=== PATIENT | male | born 1945 | race Caucasian/White ===

== ENCOUNTER 2022-10-13 13:19 | Emergency (ER) | payer MEDICARE, SELFPAY ==
[2022-10-13 13:34] VITALS: BP 168/64; PULSE 88; RESP 20; TEMP 36.9; O2SAT 99
--- NOTE | 2022-10-13 13:54 | ED.URI ---
HPI - URI/Sore Throat General Chief Complaint: Upper Respiratory Infection Stated Complaint: Cough Time Seen by Provider: 10/13/22 13:55 Source: patient and RN notes reviewed Mode of arrival: ambulatory Limitations: no limitations History of Present Illness HPI Narrative: 77-year-old male presented for complaint of and nasal congestion for 5 days. He endorses at the onset of symptoms he had a sore throat. Also reports a fever 3 days ago up to 99.9, and at that time he lost sense of taste. The cough is nonproductive, described as deep and worse for the last 3 days. Patient also reports fatigue and feeling weak. He denies chest pain, shortness of breath, wheezing, nausea, vomiting, diarrhea, abdominal pain or decreased appetite. Not taking anything for symptoms. Denies sick contacts. MD elicited complaint: cough Related Data Home Medications Medication Instructions Recorded Confirmed allopurinol 300 mg tablet mg 10/13/22 atorvastatin 10 mg tablet mg 10/13/22 brimonidine 0.2 % eye drops drp 10/13/22 lisinopril 5 mg tablet mg 10/13/22 pregabalin 25 mg capsule mg 10/13/22 pyridostigmine bromide 60 mg tablet mg 10/13/22 sertraline 50 mg tablet mg 10/13/22 timolol maleate 0.5 % eye drops drp 10/13/22 Allergies Allergy/AdvReac Type Severity Reaction Status Date / Time Penicillins Allergy Unknown RASH Verified 10/13/22 13:26 Review of Systems Review of Systems: per HPI Exam Narrative: GENERAL: mildly Ill-appearing, nontoxic EYES: conjunctivae clear ENT: Mucous membranes moist. TMspearly alba with dull light reflex bilaterally; no tragal tenderness. Oropharynx erythematous without lesions or exudate NECK: Supple. No lymphadenopathy CHEST: Clear to auscultation, breath sounds equal. No wheezing, rhonchi, rales, or stridor. Occasional moist [employer]ISH [employer]OL[employer] cough. No respiratory distress, speaks in full sentences. HEART: Regular rate and rhythm. No murmur heard. SKIN: Warm, dry, no rash. NEURO: Alert and oriented x3. PSYCH: Normal mood and affect Course Course Emergency Course: Patient is aware of diagnosis, understands and agrees to treatment plan. Anticipatory guidance given. Patient agrees to follow-up as directed and is aware of reasons to seek care at the emergency department. Portions of this record may have been created with voice recognition software Level of Care: Express Care Visit Vital Signs Vital signs: Vital Signs Temperature 98.5 F 10/13/22 13:34 Pulse Rate 88 10/13/22 13:34 Respiratory Rate 20 10/13/22 13:34 Blood Pressure 168/64 H 10/13/22 13:34 Pulse Oximetry 99 10/13/22 13:34 Temperature 98.5 F 10/13/22 13:34 Pulse Rate 88 10/13/22 13:34 Respiratory Rate 20 10/13/22 13:34 Blood Pressure 168/64 H 10/13/22 13:34 Pulse Oximetry 99 10/13/22 13:34 reviewed MDM - URI/Sore Throat MDM Narrative Medical decision making narrative: Patient presented for worsening cough for 3 days. Results of COVID test reviewed with patient. Aware we are unable to perform imaging at this facility. Will send Rx for abx. Patient works as CPA. Advised supportive measures and signs/symptoms to go to the ER. Pt is appropriate for outpt treatment and f/u. Differential Diagnosis Differential diagnosis: Likely upper respiratory infection, sinusitis and viral infection Discharge Plan Discharge Clinical Impression: Upper respiratory infection Patient Disposition: Home, Self-Care Condition: Stable Instructions: Antibiotic Form, Acute Cough (ED) Additional Instructions: Take medication as directed Recommend Flonase spray and Zyrtec (or Claritin/Ellie) over the counter Cough syrup may cause drowsiness; avoid driving or take it at night time. Tylenol every 8 hours as needed for pain Symptomatic treatment includes: rest, fluids, and increase humidity of the air at home. Follow up with your primary care provider in 1 week. Go to the ER for worsening symptoms or concerns.
== END 2022-10-13 14:35 | disposition home or self-care (01) ==
PROVIDERS: Emergency Provider Nurse Practitioner Family
DX: J06.9 Acute upper respiratory infection, unspecified (principal); Z20.822 Contact with and (suspected) exposure to COVID-19
CPT/HCPCS: 87426; 99213; C9803; G0463

== ENCOUNTER 2023-08-15 11:32 | Emergency (ER) | payer MEDICARE, SELFPAY ==
[2023-08-15 11:50] VITALS: BP 144/60; PULSE 67; RESP 20; TEMP 37.1; O2SAT 98
--- NOTE | 2023-08-15 12:43 | ED.URI ---
HPI - URI/Sore Throat General Chief Complaint: Upper Respiratory Infection Stated Complaint: Sinus Time Seen by Provider: 08/15/23 12:34 Source: patient, family () and RN notes reviewed Mode of arrival: ambulatory Limitations: no limitations History of Present Illness HPI Narrative: Patient presents today with a 2 day history of nasal congestion, subjective fever, rhinorrhea. Denies shortness of breath or chest pain. He has been taking Tylenol and ibuprofen with some relief. He was recently vaccinated for influenza. Related Data Home Medications Medication Instructions Recorded Confirmed allopurinol 300 mg tablet mg 10/13/22 atorvastatin 10 mg tablet mg 10/13/22 brimonidine 0.2 % eye drops drp 10/13/22 lisinopril 5 mg tablet mg 10/13/22 pregabalin 25 mg capsule mg 10/13/22 pyridostigmine bromide 60 mg tablet mg 10/13/22 sertraline 50 mg tablet mg 10/13/22 timolol maleate 0.5 % eye drops drp 10/13/22 Allergies Allergy/AdvReac Type Severity Reaction Status Date / Time Penicillins Allergy Unknown RASH Verified 08/15/23 11:40 Review of Systems Review of Systems: CONSTITUTIONAL: Denies body aches, chills, or sweats.+ subjective fever EYES: Denies visual changes, redness, or discharge. ENT: Denies sore throat, or otalgia.+ rhinorrhea, congestion CARDIOVASCULAR: Denies chest pain, palpitations, or edema. RESPIRATORY: Denies cough or dyspnea. GASTROINTESTINAL: Denies abdominal pain, nausea, vomiting, or diarrhea. GENITOURINARY: Denies dysuria or hematuria. SKIN: Denies rash, itching, or wounds. MUSCULOSKELETAL: Denies back pain, joint pain, or myalgia. NEUROLOGIC: Denies headache, numbness, tingling, or weakness. PSYCH: Denies depression or anxiety. [facility] Past Medical History Medical History (Updated 08/15/23 @ 12:46 by Oneyda Briseno, [facility], ) Gout High cholesterol Hypertension Comments At time of signature, I have reviewed and agree with nursing past medical, surgical, social and family history unless otherwise noted. Please see nursing chart for further information. There is no relevant family history pertinent to the presenting complaint Exam Narrative: GENERAL: Mildly ill-appearing, well-nourished, and in no acute distress. HEAD: Normocephalic, atraumatic. EYES: EOMI. No redness or drainage. Conjunctivae normal. ENT: Mucous membranes pink and moist. Nares clear. No rhinorrhea. TMs normal bilaterally. Throat normal. Uvula midline. NECK: Normal AROM. Supple. No lymphadenopathy. CHEST: No respiratory distress. Clear to auscultation. HEART: Regular rate and rhythm. No murmur appreciated. EXTREMITIES: Normal range of motion. No edema. SKIN: Warm, dry, no rash. Capillary refill normal. Normal skin turgor. NEURO: No focal deficits. Alert and oriented x3. Gait steady. PSYCH: Normal affect. No signs of depression or anxiety. Course Course Level of Care: Express Care Visit Vital Signs Vital signs: Vital Signs Temperature 98.8 F 08/15/23 11:50 Pulse Rate 67 08/15/23 11:50 Respiratory Rate 20 08/15/23 11:50 Blood Pressure 144/60 H 08/15/23 11:50 Pulse Oximetry 98 08/15/23 11:50 Oxygen Delivery Room Air 08/15/23 11:50 Temperature 98.8 F 08/15/23 11:50 Pulse Rate 67 08/15/23 11:50 Respiratory Rate 20 08/15/23 11:50 Blood Pressure 144/60 H 08/15/23 11:50 Pulse Oximetry 98 08/15/23 11:50 Oxygen Delivery Room Air 08/15/23 11:50 Reviewed MDM - URI/Sore Throat MDM Narrative Medical decision making narrative: COVID negative. Influenza a positive. Patient would like a prescription for Tamiflu. Discussed [id number] treatment as well. Differential Diagnosis Differential diagnosis: Likely upper respiratory infection, viral infection, influenza and other (COVID-19) Lab Data Attestation: I reviewed the patient's lab results. Lab results narrative: COVID-19 negative Labs: Influenza A Screen Positive
== END 2023-08-15 12:50 | disposition home or self-care (01) ==
PROVIDERS: Emergency Provider Nurse Practitioner
DX: J10.1 Influenza due to other identified influenza virus with other respiratory manifestations (principal); I10 Essential (primary) hypertension; Z20.822 Contact with and (suspected) exposure to COVID-19
CPT/HCPCS: 87426; 87804; 99213; C9803; G0463

== ENCOUNTER 2023-09-10 11:12 | Emergency (ER) | payer MEDICARE, SELFPAY ==
[2023-09-10 11:30] VITALS: BP 145/46; PULSE 66; RESP 16; TEMP 36.6; O2SAT 100
[2023-09-10 11:31] VITALS: BP 145/46; PULSE 66; RESP 16; TEMP 36.6; O2SAT 100
--- NOTE | 2023-09-10 12:25 | ED.URI ---
HPI - URI/Sore Throat General Chief Complaint: Upper Respiratory Infection Stated Complaint: feeling ill Time Seen by Provider: 09/10/23 11:40 Source: patient Mode of arrival: ambulatory Limitations: no limitations History of Present Illness HPI Narrative: Timi is a 77-year-old male patient presenting to clinic today with ?feeling ill?. He reports he has had a runny nose for the past few days with clear nasal drainage. Has a nonproductive cough. Just had influenza the 1 month ago. States he is still feeling fatigued. Denies any fever, chills, shortness breath, or chest pain MD elicited complaint: cough, nasal congestion and other (Fatigue) Related Data Home Medications Medication Instructions Recorded Confirmed allopurinol 300 mg tablet 300 mg DIRECTED 10/13/22 09/10/23 atorvastatin 10 mg tablet 10 mg DIRECTED 10/13/22 09/10/23 brimonidine 0.2 % eye drops 1 drp DIRECTED 10/13/22 09/10/23 lisinopril 5 mg tablet 5 mg DIRECTED 10/13/22 09/10/23 pregabalin 25 mg capsule 25 mg DIRECTED 10/13/22 09/10/23 pyridostigmine bromide 60 mg tablet 60 mg DIRECTED 10/13/22 09/10/23 sertraline 50 mg tablet 50 mg DIRECTED 10/13/22 09/10/23 timolol maleate 0.5 % eye drops 1 drp DIRECTED 10/13/22 09/10/23 donepezil 5 mg tablet 5 mg DIRECTED 09/10/23 09/10/23 Allergies Allergy/AdvReac Type Severity Reaction Status Date / Time Penicillins Allergy Unknown RASH Verified 08/15/23 11:40 Review of Systems Review of Systems: Pertinent positives per HPI. Patient denies any fever, chills, rash, headache, visual changes, dizziness, cough, shortness of breath, chest pain, palpitations, nausea, vomiting, diarrhea, constipation, abdominal pain, or any urinary issues. [facility] Past Medical History Medical History (Updated 09/10/23 @ 12:26 by Martin Chavira APRN) Gout High cholesterol Hypertension Comments At the time of my signature, I reviewed and agree with the nursing past medical, surgical, social, and family history. There is no relevant family history pertinent to the patient complaint. Exam Narrative: General: Well-developed, well nourished, in no apparent distress Head: Normocephalic, atraumatic Eyes: Pupils equally round and reactive to light bilaterally, EOM intact, sclera and conjunctive clear, no discharge, lids normal Ears: TMs intact and clear, ear canals clear, no drainage, grossly hearing normal. Nose: Nares patent, no discharge, no inflammation, no sinus tenderness. Mouth: Oral pharynx without lesions or masses, good dentition, MMM. Neck: Supple, trachea midline, no enlargement of anterior or posterior cervical nodes, no thyroid masses or goiter palpable. Cardio: Regular rate and rhythm, s1 and s2 normal, no murmur appreciated. Resp: Clear to auscultation bilaterally, no rhonchi, rales, wheezing or rubs Course Course Emergency Course: Portions of this record may have been created with voice recognition software. Level of Care: Express Care Visit Vital Signs Vital signs: Vital Signs Temperature 36.6 C 09/10/23 11:30 Pulse Rate 66 09/10/23 11:30 Respiratory Rate 16 09/10/23 11:30 Blood Pressure 145/46 H 09/10/23 11:30 Pulse Oximetry 100 09/10/23 11:30 Oxygen Delivery Room Air 09/10/23 11:30 Temperature 36.6 C 09/10/23 11:31 Pulse Rate 66 09/10/23 11:31 Respiratory Rate 16 09/10/23 11:31 Blood Pressure 145/46 H 09/10/23 11:31 Pulse Oximetry 100 09/10/23 11:31 Oxygen Delivery Room Air 09/10/23 11:31 Vital signs reviewed MDM - URI/Sore Throat MDM Narrative Medical decision making narrative: At the time of visit patient is resting comfortably on the exam table. Patient appears to be nontoxic. Supportive measures were discussed with the patient and they voiced understanding discharge instructions and agrees to treatment plan. Return precautions reviewed Differential Diagnosis Differential diagnosis: Likely upper respirat
== END 2023-09-10 12:36 | disposition home or self-care (01) ==
PROVIDERS: Emergency Provider Nurse Practitioner Family
DX: J06.9 Acute upper respiratory infection, unspecified (principal); B34.9 Viral infection, unspecified; Z20.822 Contact with and (suspected) exposure to COVID-19; E78.00 Pure hypercholesterolemia, unspecified; I10 Essential (primary) hypertension; M10.9 Gout, unspecified
CPT/HCPCS: 87426; 87804; 99213; C9803; G0463

== ENCOUNTER 2024-03-18 10:50 | Emergency (ER) | payer MEDICARE, SELFPAY ==
[2024-03-18 11:07] VITALS: BP 130/45; PULSE 57; RESP 16; TEMP 36.4; O2SAT 100
--- NOTE | 2024-03-18 11:51 | ED.URI ---
HPI - URI/Sore Throat General Chief Complaint: Upper Respiratory Infection Stated Complaint: Sinus/Fever Time Seen by Provider: 03/18/24 11:52 Source: patient, family, RN notes reviewed and old records reviewed Mode of arrival: ambulatory Limitations: dementia History of Present Illness HPI Narrative: patient presents to Express Care accompanied by his . Patient does have some dementia, contributes much as he is able to HPI and ROS. Much information is gained from the . Apparently patient has been complaining of a cough and a sore throat for 2 days. Intermittent fever, highest was 100.5. Taking Tylenol with moderate relief. No shortness of breath. Related Data Home Medications Medication Instructions Recorded Confirmed allopurinol 300 mg tablet 300 mg DIRECTED 10/13/22 03/18/24 atorvastatin 10 mg tablet 10 mg DIRECTED 10/13/22 03/18/24 brimonidine 0.2 % eye drops 1 drp DIRECTED 10/13/22 03/18/24 lisinopril 5 mg tablet 5 mg DIRECTED 10/13/22 03/18/24 pregabalin 25 mg capsule 25 mg DIRECTED 10/13/22 03/18/24 pyridostigmine bromide 60 mg tablet 60 mg DIRECTED 10/13/22 03/18/24 sertraline 50 mg tablet 50 mg DIRECTED 10/13/22 03/18/24 timolol maleate 0.5 % eye drops 1 drp DIRECTED 10/13/22 03/18/24 donepezil 5 mg tablet 5 mg DIRECTED 09/10/23 03/18/24 Allergies Allergy/AdvReac Type Severity Reaction Status Date / Time Penicillins Allergy Unknown RASH Verified 03/18/24 11:19 Review of Systems Review of Systems: All systems reviewed & are unremarkable except as noted in HPI and below Constitutional: Constitutional: Reports as per HPI, Reports chills and Reports fever(s) ENT: Reports system reviewed and no additional complaints, except as documented, Reports nasal congestion and Reports sore throat Cardiovascular: Cardiovascular: Reports no additional cardiovascular complaints and Denies chest pain Respiratory: Respiratory: Reports no additional respiratory complaints, Denies chest congestion, Reports cough, Denies dyspnea and Denies wheezing Gastrointestinal: Gastrointestinal: Reports no additional gastrointestinal complaints Musculoskeletal: Musculoskeletal: Reports myalgias PMFSH Past Medical History Medical History Gout High cholesterol Hypertension Comments At the time of my signature, I reviewed and agree with the nursing past medical, surgical, social, and family history. There is no relevant family history pertinent to the patient complaint. Exam Const: General: cooperative, no acute distress, alert and awake Orientation/consciousness: oriented to person HENMT: Head: normal to inspection Resp: Effort & Inspection: normal respiratory effort and able to speak in complete sentences Auscultation: clear to auscultation bilaterally, no crackles, no rales, no rhonchi and no wheezes Cardio: Palpation: normal PMI Rate: regular rate Rhythm: regular rhythm Heart sounds: S1 normal heart sound present and S2 normal heart sound present Neuro: General: oriented to person, oriented to place and oriented to time Cranial nerves: Yes CN's II-XII intact bilaterally Course Course Level of Care: Express Care Visit Vital Signs Vital signs: Vital Signs Temperature 97.5 F L 03/18/24 11:07 Pulse Rate 57 L 03/18/24 11:07 Respiratory Rate 16 03/18/24 11:07 Blood Pressure 130/45 L 03/18/24 11:07 Pulse Oximetry 100 03/18/24 11:07 Oxygen Delivery Room Air 03/18/24 11:07 Temperature 97.5 F L 03/18/24 11:07 Pulse Rate 57 L 03/18/24 11:07 Respiratory Rate 16 03/18/24 11:07 Blood Pressure 130/45 L 03/18/24 11:07 Pulse Oximetry 100 03/18/24 11:07 Oxygen Delivery Room Air 03/18/24 11:07 Reviewed MDM - URI/Sore Throat MDM Narrative Medical decision making narrative: patient in no acute distress, appears stable for discharge. Supportive care measures discussed with . Follow-up with
== END 2024-03-18 12:50 | disposition home or self-care (01) ==
PROVIDERS: Emergency Provider Nurse Practitioner Family
DX: U07.1 COVID-19 (principal); M10.9 Gout, unspecified; E78.00 Pure hypercholesterolemia, unspecified; I10 Essential (primary) hypertension
CPT/HCPCS: 87426; 99213; G0463

== ENCOUNTER 2024-07-03 13:18 | Emergency (ER) | payer MEDICARE, SELFPAY ==
--- NOTE | ~2024-07-03 | XR_ITS ---
XR chest 2V DATE: 07/03/2024 14:07 INDICATION: Productive cough TECHNIQUE: 2 views COMPARISON: None FINDINGS: Bilateral hyperinflation suggests COPD. Normal heart size. Aortic arch calcification and minimal aortic unfolding. No hilar or mediastinal en largement. Bilateral apical capping, right greater than left. No pulmonary infiltrate or consolidation, pleural effusion or pulmonary vascular congestion or pneumo thorax is detected. IMPRESSION: Bilateral hyperinflation; no active cardiopulmonary disease Reviewed, dictated and finalized at location A.
[2024-07-03 13:32] VITALS: BP 177/56; PULSE 71; RESP 20; TEMP 36.8; O2SAT 98
--- NOTE | 2024-07-03 14:20 | ED_ITS ---
HPI - URI/Sore Throat General Chief Complaint: Upper Respiratory Infection Stated Complaint: Sore Throat Time Seen by Provider: 07/03/24 14:21 Source: patient, RN notes reviewed and old records reviewed Mode of arrival: ambulatory Limitations: no limitations History of Present Illness HPI Narrative: Patient was treated for cough with a Z-Milton, he finished the Z-Milton, but complains of lingering cough. He denies any fever, chills, sweats. He does states that the cough has improved, but is concerned that it is not gone. Related Data Home Medications Medication Instructions Recorded Confirmed allopurinol 300 mg tablet 300 mg DIRECTED 10/13/22 07/03/24 atorvastatin 10 mg tablet 10 mg DIRECTED 10/13/22 07/03/24 brimonidine 0.2 % eye drops 1 drp DIRECTED 10/13/22 07/03/24 lisinopril 5 mg tablet 5 mg DIRECTED 10/13/22 07/03/24 pregabalin 25 mg capsule 25 mg DIRECTED 10/13/22 07/03/24 pyridostigmine bromide 60 mg tablet 60 mg DIRECTED 10/13/22 07/03/24 sertraline 50 mg tablet 50 mg DIRECTED 10/13/22 07/03/24 timolol maleate 0.5 % eye drops 1 drp DIRECTED 10/13/22 07/03/24 donepezil 5 mg tablet 5 mg DIRECTED 09/10/23 07/03/24 Allergies Allergy/AdvReac Type Severity Reaction Status Date / Time Penicillins Allergy Unknown RASH Verified 07/03/24 13:38 Review of Systems Review of Systems: All systems reviewed & are unremarkable except as noted in HPI and below Constitutional: Constitutional: Reports no additional constitutional complaints ENT: Reports system reviewed and no additional complaints, except as documented Cardiovascular: Cardiovascular: Reports no additional cardiovascular complaints Respiratory: Respiratory: Reports no additional respiratory complaints, Reports cough and Reports wheezing Gastrointestinal: Gastrointestinal: Reports no additional gastrointestinal complaints PMFSH Past Medical History Medical History Gout High cholesterol Hypertension Exam Const: General: cooperative, no acute distress, alert and awake Orientation/consciousness: oriented to person, oriented to place and oriented to time HENMT: Head: normal to inspection Resp: Effort & Inspection: normal respiratory effort and able to speak in complete sentences Auscultation: clear to auscultation bilaterally, no crackles, no rales, no rhonchi and wheezes (Scattered expiratory) Cardio: Palpation: normal PMI Rate: regular rate Rhythm: regular rhythm Heart sounds: S1 normal heart sound present and S2 normal heart sound present Neuro: General: oriented to person, oriented to place and oriented to time Cranial nerves: Yes CN's II-XII intact bilaterally Psych: Appearance: grossly normal Thought process: Normal thought process present Insight: Good insight present (Psych) Judgement: Good judgement present (Psych) Course Course Level of Care: Express Care Visit Vital Signs Vital signs: Vital Signs Temperature 98.2 F 07/03/24 13:32 Pulse Rate 71 07/03/24 13:32 Respiratory Rate 20 07/03/24 13:32 Blood Pressure 177/56 H 07/03/24 13:32 Pulse Oximetry 98 07/03/24 13:32 Oxygen Delivery Room Air 07/03/24 13:32 Temperature 98.2 F 07/03/24 13:32 Pulse Rate 71 07/03/24 13:32 Respiratory Rate 20 07/03/24 13:32 Blood Pressure 177/56 H 07/03/24 13:32 Pulse Oximetry 98 07/03/24 13:32 Oxygen Delivery Room Air 07/03/24 13:32 MDM - URI/Sore Throat MDM Narrative Medical decision making narrative: Patient in no distress, nontoxic appearing. Clean chest x-ray. Start prednisone, albuterol. Discharge instructions reviewed with patient, as well as provided in writing per nursing staff. The instructions also include specific and strict return/GO TO THE ER as well as f/u information. All questions have been answered, and the patient deny any further questions with discharge and discharge plan. Some parts of this dictation were generated by voice recognition software and may contain typographical and/or grammatical inaccuracies. Differential Diagnosis Differential diagnosis: Likely upper respiratory infection, sinusitis, viral infection, influenza, pharyngitis and other (Pneumonia) Medical Records Attestation: I reviewed the patient's medical records. Imaging Data Attestation: I personally reviewed and interpreted this imaging study as follows: My impression: No acute processes Radiologist's impression: [facility] [place] [address] [place] [address] XRay Report Signed Patient: Timi Casillas : 1945 MR#: [id number] Age: 78 Acct:[id number] Loc: [facility] ADM Date: 07/03/24Attending Dr: Ordering Physician: Jeane Campbell FNP Date of Service: 07/03/24 Procedure(s): XR chest 2V Accession Number(s): [id number] cc: Jeane Campbell FNP; UNKNOWN,DOCTOR~ XR chest 2V DATE: 07/03/2024 14:07 INDICATION: Productive cough TECHNIQUE: 2 views COMPARISON: None FINDINGS: Bilateral hyperinflation suggests COPD. Normal heart size. Aortic arch calcification and minimal aortic unfolding. No hilar or mediastinal enlargement. Bilateral apical capping, right greater than left. No pulmonary infiltrate or consolidation, pleural effusion or pulmonary vascular congestion or pneumothorax is detected. IMPRESSION: Bilateral hyperinflation; no active cardiopulmonary disease Reviewed, dictated and finalized at location A. Dictated By: Kel Vela MD 07/03/24 1411 Signed By: <Electronically signed by Kel Vela MD in [place]> 07/03/24 1414 Discharge Plan Discharge Clinical Impression: Upper respiratory infection Patient Disposition: Home, Self-Care Condition: Stable Instructions: Antibiotic Form, Acute Cough (ED) Additional Instructions: Take medication as prescribed, follow-up with primary care provider. Emergency department for new or worse symptoms Patient Language: Iraqi Prescriptions: New prednisone 50 mg tablet 50 mg PO DAILY Qty: 5 0RF albuterol sulfate [Ventolin HFA] 90 mcg/actuation HFA aerosol inhaler 2 puff inhalation QID PRN (Reason: shortness of breath or wheezing) Qty: 8.5 0RF No Action atorvastatin 10 mg tablet 10 mg DIRECTED pyridostigmine bromide 60 mg tablet 60 mg DIRECTED brimonidine 0.2 % drops 1 drp DIRECTED allopurinol 300 mg tablet 300 mg DIRECTED lisinopril 5 mg tablet 5 mg DIRECTED timolol maleate 0.5 % drops 1 drp DIRECTED sertraline 50 mg tablet 50 mg DIRECTED pregabalin 25 mg capsule 25 mg DIRECTED donepezil 5 mg tablet 5 mg DIRECTED Follow-up/Referrals: UNKNOWN,DOCTOR [Primary Care Provider] - Time of Disposition: 14:36
== END 2024-07-03 14:45 | disposition home or self-care (01) ==
PROVIDERS: Emergency Provider Nurse Practitioner Family
DX: J06.9 Acute upper respiratory infection, unspecified (principal); I10 Essential (primary) hypertension; E78.00 Pure hypercholesterolemia, unspecified; M10.9 Gout, unspecified
CPT/HCPCS: 71046; 99213; G0463

== ENCOUNTER 2024-10-16 11:37 | Emergency (ER) | payer MEDICARE, SELFPAY ==
--- NOTE | 2024-10-16 11:48 | ED_ITS ---
HPI - URI/Sore Throat General Chief Complaint: Upper Respiratory Infection Stated Complaint: sore throat Time Seen by Provider: 10/16/24 11:48 Source: patient, RN notes reviewed and old records reviewed Mode of arrival: ambulatory Limitations: no limitations History of Present Illness HPI Narrative: Patient presents accompanied by his . He has right ear pain, postnasal drainage, sore throat. He reports symptoms have been present for ?few days?. He has been taking [id number] medications intermittently with good results. He is concerned because his grandchildren that he was with last week were diagnosed with the flu shortly after he was visiting with them. He is not in any distress. Related Data Home Medications ?Medication ?Instructions ?Recorded ?Confirmed ?Last Taken ?Type allopurinol 300 mg tablet 300 mg PO DIRECTED 10/13/22 10/16/24 08/15/23 History atorvastatin 10 mg tablet 10 mg PO DIRECTED 10/13/22 10/16/24 08/15/23 History brimonidine 0.2 % eye drops 1 drp EACH EYE DIRECTED 10/13/22 10/16/24 08/15/23 History lisinopril 5 mg tablet 5 mg PO DIRECTED 10/13/22 10/16/24 08/15/23 History pregabalin 25 mg capsule 25 mg PO DIRECTED 10/13/22 10/16/24 08/15/23 History pyridostigmine bromide 60 mg tablet 60 mg PO DIRECTED 10/13/22 10/16/24 08/15/23 History sertraline 50 mg tablet 50 mg PO DIRECTED 10/13/22 10/16/24 08/15/23 History timolol maleate 0.5 % eye drops 1 drp EACH EYE DIRECTED 10/13/22 10/16/24 08/15/23 History rivastigmine 9.5 mg/24 hour 1 patch transdermal DAILY 10/16/24 10/16/24 Unknown History transdermal patch Allergies Allergy/AdvReac Type Severity Reaction Status Date / Time Penicillins Allergy Unknown RASH Verified 10/16/24 11:45 Review of Systems Review of Systems: All systems reviewed & are unremarkable except as noted in HPI and below Constitutional: Constitutional: Reports no additional constitutional complaints ENT: Reports system reviewed and no additional complaints, except as documented, Reports otalgia, Reports nasal congestion, Reports nasal discharge and Reports sore throat Cardiovascular: Cardiovascular: Reports no additional cardiovascular complaints Respiratory: Respiratory: Reports no additional respiratory complaints Gastrointestinal: Gastrointestinal: Reports no additional gastrointestinal complaints [facility] Past Medical History Medical History Gout High cholesterol Hypertension Comments At the time of my signature, I reviewed and agree with the nursing past medical, surgical, social, and family history. There is no relevant family history pertinent to the patient complaint. Exam Const: General: cooperative, no acute distress, alert and awake Orientation /consciousness: oriented to person, oriented to place and oriented to time HENMT: Head: normal to inspection Ears: TM abnormal dull on the right and erythematous on the right Mouth: Yes moist mucous membranes Throat: posterior oropharynx abnormal erythema and postnasal drainage Resp: Effort & Inspection: normal respiratory effort and able to speak in complete sentences Auscultation: clear to auscultation bilaterally, no crackles, no rales, no rhonchi and no wheezes Cardio: Palpation: normal PMI Rate: regular rate Rhythm: regular rhythm Heart sounds: S1 normal heart sound present and S2 normal heart sound present Neuro: General: oriented to person, oriented to place and oriented to time Cranial nerves: Yes CN's II-XII intact bilaterally Psych: Appearance: grossly normal Thought process: Normal thought process present Insight: Good insight present (Psych) Judgement: Good judgement present (Psych) Course Course Level of Care: Express Care Visit Vital Signs Vital signs: Reviewed MDM - URI/Sore Throat MDM Narrative Medical decision making narrative: Negative COVID, negative flu, negative strep. Culture pending. Patient does however have right-sided otitis media. Penicillin allergic. Started azithromycin. Patient nontoxic appearing, stable for discharge home. Discharge instructions reviewed with patient, as well as provided in writing per nursing staff. The instructions also include specific and strict return/GO TO THE ER as well as f/u information. All questions have been answered, and the patient deny any further questions with discharge and discharge plan. Some parts of this dictation were generated by voice recognition software and may contain typographical and/or grammatical inaccuracies. Differential Diagnosis Differential diagnosis: Likely upper respiratory infection, otitis media, viral infection, influenza and pharyngitis Medical Records Attestation: I reviewed the patient's medical records. Lab Data Attestation: I reviewed the patient's lab results. Discharge Plan Discharge Clinical Impression: Otitis media Qualifiers: Otitis media type: suppurative Chronicity: acute Laterality: right Recurrence: not specified as recurrent Spontaneous tympanic membrane rupture: without spontaneous rupture Qualified Code(s): H66.001 - Acute suppurative otitis media without spontaneous rupture of ear drum, right ear Patient Disposition: Home, Self-Care Condition: Stable Instructions: Antibiotic Form, Ear Infection (ED) Additional Instructions: Take medications as prescribed. Follow-up with primary care provider. Emergenc y department for new or worse symptoms Patient Language: Belarusian Prescriptions: New azithromycin 250 mg tablet See Rx Instructions .ROUTE .COMPLEX Qty: 6 0RF Rx Instructions: For 250 mg dose pack: take 500 mg today (day 1), then 250 mg for 4 days (days 2-5) No Action atorvastatin 10 mg tablet 10 mg PO DIRECTED pyridostigmine bromide 60 mg tablet 60 mg PO DIRECTED brimonidine 0.2 % drops 1 drp EACH EYE DIRECTED allopurinol 300 mg tablet 300 mg PO DIRECTED lisinopril 5 mg tablet 5 mg PO DIRECTED timolol maleate 0.5 % drops 1 drp EACH EYE DIRECTED sertraline 50 mg tablet 50 mg PO DIRECTED pregabalin 25 mg capsule 25 mg PO DIRECTED rivastigmine 9.5 mg/24 hour patch 24 hour 1 patch transdermal DAILY Follow-up/Referrals: PHYSICIAN NOT ON STAFF,NONSTAFF [Primary Care Provider] - Time of Disposition: 12:29
[2024-10-16 11:51] VITALS: BP 184/49; PULSE 63; RESP 16; TEMP 36.1; O2SAT 99
[2024-10-16 12:00] VITALS: BP 168/70
[2024-10-16 12:19] LABS: EDSTREPNEGPOS1 Negative (Negative)
[2024-10-16 12:24] LABS: EDCOVIDSCREEN Negative (Negative); EDINFLUASCREEN Negative (Negative); EDINFLUBSCREEN Negative (Negative)
== END 2024-10-16 12:33 | disposition home or self-care (01) ==
PROVIDERS: Emergency Provider Nurse Practitioner Family
DX: H66.001 Acute suppurative otitis media without spontaneous rupture of ear drum, right ear (principal); Z20.822 Contact with and (suspected) exposure to COVID-19; I10 Essential (primary) hypertension; E78.00 Pure hypercholesterolemia, unspecified; M10.9 Gout, unspecified
CPT/HCPCS: 87426; 87804; 87880; 99213; G0463

== ENCOUNTER 2025-01-03 14:05 | Emergency (ER) | payer MEDICARE, SELFPAY ==
[2025-01-03 14:14] VITALS: BP 147/54; PULSE 72; RESP 18; TEMP 36.6; O2SAT 100
--- NOTE | 2025-01-03 14:37 | ED.URI ---
HPI - URI/Sore Throat General Chief Complaint: Upper Respiratory Infection Stated Complaint: cold/upper respirator symptoms Time Seen by Provider: 01/03/25 14:44 Source: patient and RN notes reviewed Mode of arrival: ambulatory Limitations: no limitations History of Present Illness HPI Narrative: 79-year-old male presents with concern for 2 week history of sinus congestion, drainage, cough. Denies fever. Reports taking Tylenol and ibuprofen without relief. MD elicited complaint: cough, rhinorrhea and nasal congestion Related Data Home Medications ?Medication ?Instructions ?Recorded ?Confirmed ?Last Taken ?Type allopurinol 300 mg tablet 300 mg PO DIRECTED 10/13/22 10/16/24 08/15/23 History atorvastatin 10 mg tablet 10 mg PO DIRECTED 10/13/22 10/16/24 08/15/23 History brimonidine 0.2 % eye drops 1 drp EACH EYE DIRECTED 10/13/22 10/16/24 08/15/23 History lisinopril 5 mg tablet 5 mg PO DIRECTED 10/13/22 10/16/24 08/15/23 History pregabalin 25 mg capsule 25 mg PO DIRECTED 10/13/22 10/16/24 08/15/23 History pyridostigmine bromide 60 mg tablet 60 mg PO DIRECTED 10/13/22 10/16/24 08/15/23 History sertraline 50 mg tablet 50 mg PO DIRECTED 10/13/22 10/16/24 08/15/23 History timolol maleate 0.5 % eye drops 1 drp EACH EYE DIRECTED 10/13/22 10/16/24 08/15/23 History rivastigmine 9.5 mg/24 hour 1 patch transdermal DAILY 10/16/24 10/16/24 Unknown History transdermal patch Allergies Allergy/AdvReac Type Severity Reaction Status Date / Time Penicillins Allergy Unknown RASH Verified 01/03/25 14:18 Review of Systems Review of Systems: CONSTITUTIONAL: Denies malaise, chills, sweats, or fever. EYES: Denies visual changes, redness, or discharge. ENT: Reports rhinorrhea, congestion, sinus pain. Denies otalgia and sore throat. CARDIOVASCULAR: Denies chest pain, palpitations, or edema. RESPIRATORY: Reports cough. Denies dyspnea. GASTROINTESTINAL: Denies abdominal pain, nausea, vomiting, diarrhea SKIN: Denies rash or itching. MUSCULOSKELETAL: Denies myalgia. NEUROLOGIC: Denies headache. All systems reviewed & are unremarkable except as noted in HPI and below PMFSH Past Medical History Medical History Gout High cholesterol Hypertension Comments At time of signature, agree with nursing past medical, surgical, social and family history. There is no relevant family history pertinent to the presenting complaint Exam Narrative: GENERAL: Well-appearing, well-nourished, and in no acute distress. HEAD: Normocephalic EYES: PERRLA, conjunctivae clear ENT: Nares clear, turbinates edematous and erythematous. Mucous membranes moist. TM pearly alba with dull light reflex bilaterally; no tragal tenderness. Oropharynx not erythematous without lesions. Tonsils not enlarged and without exudate, no drooling, no hoarseness, no trismus, uvula midline. NECK: Supple. No lymphadenopathy CHEST: Clear to auscultation, breath sounds equal. No wheezing, rhonchi, rales, or stridor. No respiratory distress, speaks in full sentences. HEART: Regular rate and rhythm. No murmur heard. SKIN: Warm, dry, no rash. NEURO: Alert and oriented x3. PSYCH: Normal mood and affect Course Course Emergency Course: Patient is aware of diagnosis, understands and agrees to treatment plan. Anticipatory guidance given. Patient agrees to follow-up as directed and is aware of reasons to seek care at the emergency department. Portions of this record may have been created with voice recognition software Level of Care: Express Care Visit Vital Signs Vital signs: Vital Signs Temperature 97.8 F 01/03/25 14:14 Pulse Rate 72 01/03/25 14:14 Respiratory Rate 18 01/03/25 14:14 Blood Pressure 147/54 H 01/03/25 14:14 Pulse Oximetry 100 01/03/25 14:14 Oxygen Delivery Room Air 01/03/25 14:14 Temperature 97.8 F 01/03/25 14:14 Pulse Rate 72 01/03/25 14:14 Respiratory Rate 18 01/03/25 14:14 Blood Pressure 147/54 H 01/03/25 14:14 Pulse Oximetry 100 01/03/25 14:14 Oxygen Delivery Room Air 01/03/25 14:14 Reviewed. MDM - URI/Sore Throat MDM Narrative Medical decision making narrative: Differential diagnosis considered: Merino virus, strep pharyngitis, allergic rhinitis, upper respiratory tract infection, sinusitis, rhinosinusitis, nasopharyngitis. viral pharyngitis, otitis media, otitis externa, pneumonia, bronchitis, viral cough syndrome, viral syndrome, and influenza. Exam findings show no acute concerns or changes; patient is non-toxic appearing and is in no distress. Patient is appropriate for outpatient treatment and follow-up. Lab Data Attestation: I reviewed the patient's lab results. Critical Care Time Critical Care Time Critical Care Time: No Discharge Plan Discharge Clinical Impression: Sinobronchitis Patient Disposition: Home Condition: Stable Instructions: Antibiotic Form, Sinusitis (ED) Additional Instructions: Symptomatic treatment of a sinus infection aims to relieve symptoms. These treatments do not shorten the duration of illness. Nonprescription pain medications, such as acetaminophen (eg, Tylenol) or ibuprofen (eg, Motrin, Advil), are recommended for pain. Flushing the nose and sinuses with a saline solution several times per day has been proven to decrease pain associated with congestion and shorten the duration of symptoms. Nasal steroids (such as Flonase, 2 sprays in each nostril daily) can help to reduce swelling inside the nose, usually within two to three days. These drugs have few side effects and relieve symptoms in most people. Please follow-up with your primary care doctor in the next 1-2 days. If you cannot follow-up with your primary care doctor please go to the ED for any urgent issues. If you have any worsening of symptoms or any other concerns please go to the ED immediately. Patient Language: Uruguayan Prescriptions: New pseudoephedrine HCl [12 Hour Decongestant] 120 mg tablet extended release 120 mg PO Q12H PRN (Reason: nasal congestion) Qty: 20 0RF doxycycline monohydrate 100 mg tablet 100 mg PO BID 7 Days Qty: 14 0RF ipratropium bromide 21 mcg (0.03 %) spray,non-aerosol 2 spray NASAL TID PRN (Reason: nasal drainage) Qty: 30 0RF Rx Instructions: administer into each nostril No Action atorvastatin 10 mg tablet 10 mg PO DIRECTED pyridostigmine bromide 60 mg tablet 60 mg PO DIRECTED brimonidine 0.2 % drops 1 drp EACH EYE DIRECTED allopurinol 300 mg tablet 300 mg PO DIRECTED lisinopril 5 mg tablet 5 mg PO DIRECTED timolol maleate 0.5 % drops 1 drp EACH EYE DIRECTED sertraline 50 mg tablet 50 mg PO DIRECTED pregabalin 25 mg capsule 25 mg PO DIRECTED rivastigmine 9.5 mg/24 hour patch 24 hour 1 patch transdermal DAILY Follow-up/Referrals: PHYSICIAN NOT ON STAFF,NONSTAFF [Primary Care Provider] - Time of Disposition: 14:54
== END 2025-01-03 14:56 | disposition home or self-care (01) ==
PROVIDERS: Emergency Provider Nurse Practitioner
DX: J32.9 Chronic sinusitis, unspecified (principal); J40 Bronchitis, not specified as acute or chronic; I10 Essential (primary) hypertension; E78.00 Pure hypercholesterolemia, unspecified; M10.9 Gout, unspecified
CPT/HCPCS: 99213; G0463

== ENCOUNTER 2025-08-07 14:24 | Emergency (ER) | payer MEDICARE, SELFPAY ==
--- NOTE | 2025-08-07 14:27 | ED.BACK ---
HPI - Back Pain/Injury General Chief Complaint: Back Pain/Injury Stated Complaint: back pain Time Seen by Provider: 08/07/25 14:26 Source: patient Mode of arrival: ambulatory Limitations: no limitations History of Present Illness HPI Narrative: patient is a 79-year-old male who presents with low back pain. Patient states he fell in June and fracture in his L3. Patient has been seen by Neurology and cleared after fracture. Patient states today he is having sharp spasms that last a few seconds and go away. States they are random and not directly associated to any movement. Denies any numbness, tingling or weakness to his lower extremities. Denies any loss of bowel or bladder. Related Data Home Medications ?Medication ?Instructions ?Recorded ?Confirmed ?Last Taken ?Type allopurinol 300 mg tablet 300 mg PO DIRECTED 10/13/22 10/16/24 08/15/23 History atorvastatin 10 mg tablet 10 mg PO DIRECTED 10/13/22 10/16/24 08/15/23 History brimonidine 0.2 % eye drops 1 drp EACH EYE DIRECTED 10/13/22 10/16/24 08/15/23 History pregabalin 25 mg capsule 25 mg PO DIRECTED 10/13/22 10/16/24 08/15/23 History timolol maleate 0.5 % eye drops 1 drp EACH EYE DIRECTED 10/13/22 10/16/24 08/15/23 History rivastigmine 9.5 mg/24 hour 1 patch transdermal DAILY 10/16/24 10/16/24 Unknown History transdermal patch losartan 50 mg-hydrochlorothiazide tablet 08/07/25 Unknown History 12.5 mg tablet sertraline 100 mg tablet mg 08/07/25 Unknown History Allergies Allergy/AdvReac Type Severity Reaction Status Date / Time Penicillins Allergy Unknown RASH Verified 08/07/25 14:59 Review of Systems Review of Systems: All systems reviewed & are unremarkable except as noted in HPI and below Constitutional: Constitutional: Denies body ache(s), Denies chills, Denies fatigue, Denies fever(s), Denies headache(s), Denies malaise and Denies weakness Eyes: Eyes: Denies blurry vision, Denies irritation and Denies loss of vision ENT: Denies otalgia, Denies headache(s), Denies nasal discharge, Denies sinus pain and Denies sore throat Cardiovascular: Cardiovascular: Denies chest pain, Denies irregular heart rhythm and Denies dyspnea Respiratory: Respiratory: Denies dyspnea Gastrointestinal: Gastrointestinal: Denies abdominal pain, Denies melena, Denies hematochezia, Denies diarrhea, Denies nausea and Denies vomiting Musculoskeletal: Musculoskeletal: Reports back pain, Denies myalgias and Denies arthralgias Integumentary/Breasts: Skin/Breast: Denies pruritus and Denies rash Neurologic: Denies headache(s), Denies loss of vision and Denies weakness Psychiatric: Psychiatric: Reports no additional psychiatric complaints Endocrine: Endocrine: Denies fatigue PMFSH Past Medical History Medical History Hypertension High cholesterol Gout Comments At time of signature, agree with nursing past medical, surgical, social and family history. There is no relevant family history pertinent to the presenting complaint. Exam Const: General: cooperative, healthy appearing, comfortable, no acute distress and well nourished Nutritional Appearance: well nourished Orientation/consciousness: patient oriented x3 Limitations: no limitations HENMT: Head: normal to inspection, normocephalic and atraumatic Ears: hearing grossly normal bilaterally and external ears normal Face/Nose/Sinus: Normal external nose present, normal facial exam and face symmetric Face and sinus: normal facial exam and face symmetric Mouth: Yes lip normal Eyes: General: appearance normal, both eyes and all related structures Alignment and Position: alignment normal and position normal Periorbital: periorbital findings normal Eyelids: eyelids normal Pupils: Equal, round and reactive pupils present EOM: EOMs intact bilaterally Neck: Neck: normal visual inspection, full ROM and supple Chest: Chest palpation & inspection: normal inspection of the chest Resp: Effort & Inspection: normal respiratory effort and able to speak in complete sentences Auscultation: clear to auscultation bilaterally Cardio: Rate: regular rate Rhythm: regular rhythm Heart sounds: S1 normal heart sound present and S2 normal heart sound present GI: Inspection: normal to inspection Back/Spine/Pelvis: Thoracic/Lumbar Spine: thoracic and lumbar spine normal to inspection, thoraco-lumbar ROM normal, No paraspinal muscle tenderness, No thoracic spinal tenderness and No lumbar spinal tenderness Skin: General skin exam: normal color and no rashes or lesions noted Neuro: General: patient oriented x3 and moves all extremities Cranial nerves: Yes Equal, round and reactive pupils present Cognition (Neuro): normal cognition Speech: normal speech Gait exam (Neuro): Normal gait present Motor exam (neuro): 5/5 motor strength present throughout, Normal motor muscle tone present throughout and Motor abnormalities not present Sensory Exam: normal sensation Extrem: General: normal to inspection, full ROM and no edema Psych: Appearance: grossly normal and well kempt Mental Status: mental status grossly normal Speech and movement: Normal speech and movement present Affect: normal affect Attitude: cooperative Thought process: Normal thought process present Course Course Emergency Course: Patient is aware of diagnosis, understands and agrees to treatment plan. Anticipatory guidance given. Patient agrees to follow-up as directed and is aware of reasons to seek care at the emergency department. Portions of this record may have been created with voice recognition software Level of Care: Express Care Visit Vital Signs Vital signs: Reviewed MDM - Back Pain/Injury MDM Narrative Medical decision making narrative: No risk factors or findings concerning for epidural abscess, diskitis, vertebral osteomyelitis, cord compression, cauda equina, vertebral fracture or bone malignancy, AAA, or pyelonephritis. Patient instructed to consider further imaging and workup through their primary care physician as an outpatient if symptoms persist. will treat with some muscle relaxers and lidocaine patches. Patient courage to follow-up with neurosurgery Pt well hydrated appearing, in no respiratory distress, hemodynamically stable. Recommend supportive care. The patient is stable at time of discharge the clinical impression was discussed and the patient was given the opportunity to ask questions, which were addressed as completely as possible given the information available at present. Anticipatory guidance and return to care precautions were discussed and the importance of primary care follow-up was stressed and encouraged. The patient voiced understanding of the plan, indications to return, and the need for follow-up. Exam findings show no acute concerns or changes Patient is appropriate for outpatient treatment and follow-up. Differential Diagnosis Differential diagnosis: Likely lumbar radiculopathy and strain of lumbar region Medical Records Attestation: I reviewed the patient's medical records. Discharge Plan Discharge Clinical Impression: Low back pain Qualifiers: Chronicity: acute Back pain laterality: bilateral Sciatica presence: without sciatica Qualified Code(s): M54.50 - Low back pain, unspecified Patient Disposition: Home Condition: Stable Instructions: Acute Low Back Pain (ED), Lower Back Exercises (ED) Additional Instructions: take muscle relaxers every 12 hours as needed for muscle spasm. do not drive or make any important decisions while on this medication for it can make you drowsy For pain, you may take: Tylenol 650-1000mg by mouth every 4-6 hours. Do not exceed 4000mg in 24 hours. Advil (Ibuprofen) 600 mg by mouth every 6 hours. Do not exceed 2400mg in 24 hours. 8 AM: Tylenol 11 AM: Ibuprofen 2 PM: Tylenol 5 PM: Ibuprofen 8 PM: Tylenol 11 PM: Ibuprofen 2 AM: Tylenol 5 AM: Ibuprofen Exercise:Combine aerobic exercise, like walking or swimming, with specific exercises to keep the muscles in your back and abdomen strong and flexible.bed rest is not recommended. Proper Lifting:Be sure to lift heavy items with your legs, not your back. Do not bend over to pick something up. Keep your back straight and bend at your knees. Weight:Maintain a healthy weight. Being overweight puts added stress on your lower back. Avoid Smoking:Both the smoke and the nicotine cause your spine to age faster than normal. Proper Posture:Good posture is important for avoiding future problems. A therapist can teach you how to safely stand, sit, and lift. Use warm moist heat or ice to help with pain. Follow up with Primary provider in 2-3 days, This may become a chronic condition and they will be the one to help manage your pain and order additional testing. Follow-up with your doctor for further care and evaluation or seek ER if you develop problems with bladder/bowel function, weakness or loss of feeling in one or both of your legs. Patient Language: Georgian Prescriptions: New baclofen 10 mg tablet 10 mg PO BID Qty: 10 0RF lidocaine 5 % adhesive patch,medicated 1 patch topical DAILY Qty: 15 0RF Rx Instructions: leave on most painful area for up to 12 hrs No Action atorvastatin 10 mg tablet 10 mg PO DIRECTED brimonidine 0.2 % drops 1 drp EACH EYE DIRECTED allopurinol 300 mg tablet 300 mg PO DIRECTED timolol maleate 0.5 % drops 1 drp EACH EYE DIRECTED pregabalin 25 mg capsule 25 mg PO DIRECTED ipratropium bromide 21 mcg (0.03 %) spray,non-aerosol 2 spray NASAL TID PRN (Reason: nasal drainage) Qty: 30 0RF Rx Instructions: administer into each nostril rivastigmine 9.5 mg/24 hour patch 24 hour 1 patch transdermal DAILY sertraline 100 mg tablet losartan-hydrochlorothiazide 50-12.5 mg tablet Follow-up/Referrals: Umesh,Ayaan Ornelas [Other] - 3 Days Time of Disposition: 15:01
[2025-08-07 14:41] VITALS: BP 194/59; PULSE 63; RESP 16; TEMP 36.2; O2SAT 100
== END 2025-08-07 15:08 | disposition home or self-care (01) ==
PROVIDERS: Emergency Provider Nurse Practitioner Family
DX: M54.50 Low back pain, unspecified (principal); I10 Essential (primary) hypertension; E78.00 Pure hypercholesterolemia, unspecified; M10.9 Gout, unspecified
CPT/HCPCS: 99213; G0463